=== PATIENT | female | born 1975 | race Caucasian/White ===

== ENCOUNTER 2018-05-30 01:38 | Outpatient (CLI) | payer OTHER | END 2018-05-30 08:07 | disposition home or self-care (01) | LOC: NST 01:38 | DX: Z34.82 Encounter for supervision of other normal pregnancy, second trimester (principal) ==

== ENCOUNTER 2018-06-11 07:42 | Outpatient (CLI) | payer OTHER | END 2018-06-11 08:35 | disposition home or self-care (01) | LOC: NST 07:42 | DX: Z34.83 Encounter for supervision of other normal pregnancy, third trimester (principal) ==

== ENCOUNTER 2018-06-20 00:16 | Inpatient (IN) | payer OTHER ==
[~2018-06-20] VITALS: Ht 157.5 cm; Wt 59.0 kg
[2018-06-21] MEDS ORDERED: OBSTETRIX DHA1 EACH PO (12:03)
== END 2018-06-23 13:13 | disposition home or self-care (01) | DRG 833 ==
LOC: OBS/DEL 00:16 → OB/GYN 01:24 → LDR 01:24 → OB/GYN 06-21 11:21
PROVIDERS: ADMIT Obstetrics & Gynecology Maternal & Fetal Medicine
PROC: BY4FZZZ Ultrasonography of Third Trimester, Single Fetus (ICD-10-PCS; principal; 2018-06-20)
PROC: 4A1HXCZ Monitoring of Products of Conception, Cardiac Rate, External Approach (ICD-10-PCS; 2018-06-20)
DX: O47.03 False labor before 37 completed weeks of gestation, third trimester (principal); R10.2 Pelvic and perineal pain; Z34.03 Encounter for supervision of normal first pregnancy, third trimester

== ENCOUNTER 2018-07-09 09:35 | Outpatient (CLI) | payer OTHER ==
[~2018-07-09 09:35] MED LIST: OBSTETRIX DHA1 EACH PO
== END 2018-07-09 10:30 | disposition home or self-care (01) ==
LOC: NST 09:35
DX: Z34.83 Encounter for supervision of other normal pregnancy, third trimester (principal)

== ENCOUNTER 2018-08-06 12:55 | Inpatient (IN) | payer OTHER ==
[~2018-08-06] VITALS: Ht 157.5 cm; Wt 62.6 kg
== END 2018-09-08 14:36 | disposition home or self-care (01) | DRG 788 ==
LOC: OB/GYN 09-01 09:00 → LDR 09-04 16:18 → SURG-SUITE 09-04 16:18
PROVIDERS: Obstetrics & Gynecology; ADMIT Obstetrics & Gynecology Maternal & Fetal Medicine
PROC: 3E033VJ Introduction of Other Hormone into Peripheral Vein, Percutaneous Approach (ICD-10-PCS; 2018-09-04)
PROC: 4A0HXFZ Measurement of Products of Conception, Cardiac Rhythm, External Approach (ICD-10-PCS; 2018-09-05)
PROC: 10D00Z1 Extraction of Products of Conception, Low, Open Approach (ICD-10-PCS; principal; 2018-09-05 14:00)
DX: O82 Encounter for cesarean delivery without indication (principal); O36.63X0 Maternal care for excessive fetal growth, third trimester, not applicable or unspecified; O61.0 Failed medical induction of labor; Z3A.39 39 weeks gestation of pregnancy; Z37.0 Single live birth

== ENCOUNTER 2018-08-28 08:38 | Outpatient (CLI) | payer OTHER | END 2018-08-28 09:27 | disposition home or self-care (01) | LOC: NST 08:38 | DX: Z34.83 Encounter for supervision of other normal pregnancy, third trimester (principal) ==

== ENCOUNTER 2018-09-04 08:25 | Outpatient (CLI) | payer OTHER | END 2018-09-04 09:31 | disposition home or self-care (01) | LOC: NST 08:25 | DX: Z34.83 Encounter for supervision of other normal pregnancy, third trimester (principal) ==